=== PATIENT | male | born 1960 | race Caucasian/White ===

== ENCOUNTER → 2016-08-20 | Outpatient (CLI) | payer OTHER ==
[2016-08-20 18:22] LABS: BASO % 0.4 %; BASO ABS # 0.04 K/uL (0-0.2); COMPLETE YES; EOS % 2.8 %; HEMATOCRIT 42.7 % (42-52); IG% 0.3 %; LYMPH % 33.4 %; LYMPH ABS # 3.03 K/uL (1.2-3.4); MEAN CELL VOLUME 89.5 fL (80-100); MEAN CORPUSCULAR HEMOGLOBIN 31.4 pg (25-34); MEAN CORPUSCULAR HGB CONC 35.1 g/dl (32-36); MEAN PLATELET VOLUME 9.9 fL (7.4-10.4); MONO % 6.3 %; NEUT % 56.8 %; PLATELET COUNT 284 K/uL (130-400); RED BLOOD COUNT 4.77 M/uL (4.7-6.1); WHITE BLOOD COUNT 9.08 K/uL (4.8-10.8)
[2016-08-20 19:40] LABS: ALT/SGPT 31 U/L (12-78); AST/SGOT 21 U/L (15-37); BLOOD UREA NITROGEN 11 mg/dl (7-18); BUN/CREATININE RATIO 10.7 (10-20); CALCIUM 8.9 mg/dl (8.5-10.1); CARBON DIOXIDE 25 mmol/L (21-32); CHLORIDE 109 mmol/L (98-107); CREATININE 0.98 mg/dl (0.60-1.40); GLUCOSE 92 mg/dl (70-99); SODIUM 142 mmol/L (136-145)
[2016-08-20 19:46] LABS: ALB/GLOB RATIO 1.3 (0.9-2); ALKALINE PHOSPHATASE 109 U/L (45-117); CHOLESTEROL 128 mg/dl (0-200); CHOLESTEROL/HDL RATIO 3.1; HDL CHOLESTEROL 41 mg/dl; LDL CHOLESTEROL CALCULATED 41 mg/dl; PROSTATE SPECIFIC ANTIGEN 0.591 ng/ml (0.000-4.000); TRIGLYCERIDES 232 mg/dl (0-150); VERY LOW DENSITY LIPOPROT CALC 46 mg/dl
== END | disposition home or self-care (01) ==
LOC: C.LABSPEC 17:51
PROVIDERS: ATTEND Family Medicine
DX: Z00.00 Encounter for general adult medical examination without abnormal findings (principal); E78.2 Mixed hyperlipidemia; K21.9 Gastro-esophageal reflux disease without esophagitis; Z12.5 Encounter for screening for malignant neoplasm of prostate